=== PATIENT | female | born 1945 | race Caucasian/White ===

== ENCOUNTER 2020-04-04 09:56 | Day surgery (SDC) | payer BC, OTHER ==
[2020-03-29 11:15] VITALS: BMI 37.0
[2020-04-04] MEDS: TROPICAMIDE 1% OPHTH SOLN 15 ML BOTTLE OD SCH ×3 (10:30→10:40)
[2020-04-04] MEDS: CYCLOPENTOLATE 2% OPHTH SOLN 2 ML BOTTLE OD SCH ×3 (10:30→10:40)
[2020-04-04] MEDS: CIPROFLOXACIN 0.3% EYE DROPS 5 ML BOTTLE OD SCH ×3 (10:30→10:40)
[2020-04-04] MEDS: PHENYLEPHRINE 2.5% OPHTH SOLN 15 ML BOTTLE OD SCH ×3 (10:30→10:40)
[2020-04-04] MEDS ORDERED: MIDAZOLAM HCL 2 MG/2 ML SINGLE DOSE VIAL ONE (11:00)
[2020-04-04 11:43] VITALS: TEMP 98
[2020-04-04 12:29] VITALS: BP 128/61; PULSE 94
--- NOTE | 2020-04-05 10:10 | OP ---
DATE OF OPERATION: 04/04/2020 OPERATIVE PROCEDURE: Lens Phacoemulsification with Posterior Chamber Intraocular Lens Placement, Right Eye PREOPERATIVE DIAGNOSIS: Visually Significant Cataract of Right Eye POSTOPERATIVE DIAGNOSIS: Visually Significant Cataract of Right Eye SURGEON: Eyd Crawford M.D. ANESTHESIA: MAC PROCEDURE: The patient was brought to the operating room and placed under monitored anesthesia care by Anesthesia. A drop of Tetracaine was then placed over the right eye. The patient was then prepped and draped in the usual sterile manner. A speculum was then placed over the right eye. The eye was then well irrigated with copious amounts of BSS (balanced salt solution). The operating microscope was then moved into position. A paracentesis was performed using a 15 degree blade. At this point 0.5 mL of 1% preservative free-lidocaine was injected into the anterior chamber. Amvisc plus was then injected into the anterior chamber. A clear corneal incision was then formed using a 2.2 mm keratome. A capsulorrhexis was then performed in a continuous circular fashion beginning with a cystotome completed with an Utratas forceps. Hydrodissection was then performed using BSS on a cannula. The phaco probe was then introduced through the corneal wound and the cataract was removed using the phaco chop technique. Approximately 3 seconds of absolute phaco time was used. The remaining cortex was then removed using irrigation and aspiration with an I/A probe. The capsule was then filled with regular Amvisc and the capsule was noted to be intact. A previously selected foldable posterior chamber intraocular lens was then injected into the capsule through the corneal wound using a lens injector. It was then dialed into position using a Sinskey hook. The Amvisc was then removed using irrigation and aspiration. Miostat was then injected through the paracentesis to constrict the pupil. The paracentesis and corneal wound were then hydrated and noted to be water tight. A drop of Maxitrol was then placed over the eye. The speculum was removed and clear shield was taped over the eye. The patient tolerated the procedure well and there were no surgical complications. The patient was asked to follow up in my office the next day. EDY CRAWFORD M.D. [id number]
== END 2020-04-04 12:15 | disposition home or self-care (01) ==
LOC: FASU 09:56
PROVIDERS: ATTEND Ophthalmology
PROC: 08RJ3JZ Replacement of Right Lens with Synthetic Substitute, Percutaneous Approach (ICD-10-PCS; principal; 2020-04-04 11:05)
DX: H26.8 Other specified cataract (principal)

== ENCOUNTER 2020-11-11 02:54 | Emergency (ER) | payer BC, OTHER ==
[2020-11-11] MEDS ORDERED: ACETAMINOPHEN 500 MG TABLET (FP) PO ONE (03:30)
[2020-11-11] MEDS ORDERED: ACETAMINOPHEN 325 MG TABLET (FP) ONE (03:45)
[2020-11-11] MEDS ORDERED: SODIUM CHLORIDE 0.9% 500 ML INFUS.BAG IV ONE ×2 (03:59→05:36)
[2020-11-11 04:22] LABS: BASO % 0.1 % (0-2.0); HEMATOCRIT 36.2 % (32.4-45.2); HEMOGLOBIN 11.8 GM/dL (10.7-15.3); LYMPH % 13.1 % (8-40); MCH 32.3 pg (25.7-33.7); MCHC 32.5 g/dl (32.0-36.0); MEAN CELL VOLUME 99.3 fl (80-96); MONO % 8.6 % (3.8-10.2); NEUT % 78.2 % (42.8-82.8); PLATELET COUNT 137 K/MM3 (134-434); RBC 3.64 M/mm3 (3.60-5.2); WHITE BLOOD COUNT 5.6 K/mm3 (4.0-10.0)
[2020-11-11 04:36] VITALS: TEMP 98.2; BMI 33.0
[2020-11-11 04:40] LABS: POTASSIUM 4.3 mmol/L (3.5-5.1)
[2020-11-11 04:43] LABS: ALBUMIN 3.5 g/dl (3.4-5.0); BLOOD UREA NITROGEN 13.8 mg/dL (7-18); CALCIUM 8.4 mg/dL (8.5-10.1)
[2020-11-11 04:46] LABS: CREATININE 0.6 mg/dL (0.55-1.3)
[2020-11-11 04:48] LABS: BILIRUBIN,TOTAL 0.3 mg/dL (0.2-1); TOT PROT 6.8 g/dl (6.4-8.2)
[2020-11-11 06:17] VITALS: BP 126/75; PULSE 96
== END 2020-11-11 06:48 | disposition left against medical advice (07) ==
LOC: JER 02:54
DX: F10.10 Alcohol abuse, uncomplicated (principal)
CPT/HCPCS: 36415; 70450-TC; 70486-TC; 71045-TC-FY; 72125-TC; 73030-TC-LT-FY; 73523-TC-FY; 80053; 80307; 85025; 99285-25

== ENCOUNTER 2024-02-18 10:51 | Emergency (ER) | payer OTHER, BC ==
[2024-02-18 11:07] VITALS: RESP 18; TEMP 98.2; BMI 29.6
[2024-02-18 12:00] LABS: BASO % 0.1 % (0-2.0); HEMATOCRIT 33.2 % (32.4-45.2); HEMOGLOBIN 11.3 GM/dL (10.7-15.3); MCH 33.9 pg (25.7-33.7); MCHC 34.2 g/dl (32.0-36.0); MEAN CELL VOLUME 99.2 fl (80-96); MEAN PLT VOLUME 7.9 fl (7.5-11.1); NEUT % 84.9 % (42.8-82.8); PLATELET COUNT 210 10^3/uL (134-434); RBC 3.34 M/mm3 (3.60-5.2); RDW 14.3 % (11.6-15.6); WHITE BLOOD COUNT 7.6 K/mm3 (4.0-10.0)
[2024-02-18 12:17] LABS: INR 0.94 (0.83-1.09); PROTHROMBIN TIME (PATIENT) 10.6 SEC (9.7-13.0)
[2024-02-18 12:19] LABS: ACTIVATED PTT 27.8 SECONDS (25.2-36.5)
[2024-02-18 12:21] LABS: POTASSIUM 5.4 mmol/L (3.5-5.1)
[2024-02-18 12:23] LABS: BLOOD UREA NITROGEN 20.7 mg/dL (7-18); CALCIUM 9.1 mg/dL (8.5-10.1)
[2024-02-18 12:24] LABS: ALBUMIN 3.8 g/dl (3.4-5.0)
[2024-02-18 12:28] LABS: BILIRUBIN,TOTAL 0.6 mg/dL (0.2-1); TOT PROT 7.1 g/dl (6.4-8.2)
[2024-02-18] MEDS: SODIUM CHLORIDE 0.9% 500 ML INFUS.BAG IV ONE (13:36)
[2024-02-18] MEDS ORDERED: morphine SULFATE 4 MG/ML VIAL ONE (13:37)
[2024-02-18] MEDS: morphine CARPU-JECT 4 MG/1 ML DISP.SYRIN IVPUSH ONE (13:40)
[2024-02-18] MEDS ORDERED: PRIMIDONE 250 MG TABLET PO ONE (17:20)
[2024-02-18] MEDS: PRIMIDONE 50 MG TABLET PO ONE ×2 (17:46→18:19)
[2024-02-18 18:18] VITALS: BP 117/64; PULSE 91
== END 2024-02-18 19:20 | disposition home or self-care (01) ==
LOC: JER 10:51
PROC: 3E033NZ Introduction of Analgesics, Hypnotics, Sedatives into Peripheral Vein, Percutaneous Approach (ICD-10-PCS; principal; 2024-02-18)
DX: S42.292A Other displaced fracture of upper end of left humerus, initial encounter for closed fracture (principal); M25.512 Pain in left shoulder; W18.39XA Other fall on same level, initial encounter
CPT/HCPCS: 36415; 70450-TC; 71045-TC-FY; 72125-TC; 72170-TC-FY; 73030-TC-LT-FY; 73060-TC-LT-FY; 73070-TC-LT-FY; 73090-TC-LT-FY; 73110-TC-LT-FY; 73130-TC-LT-FY; 73200-TC-RT; 80053; 82550; 82553; 82962; 84132; 84484; 85025; 85610; 85730; 86850; 86900; 86901; 93005; 93010; 99285-25

== ENCOUNTER 2024-02-24 09:18 | Inpatient (IN) | payer OTHER, BC ==
[2024-02-24 09:40] VITALS: BMI 30.7
[2024-02-24] MEDS ORDERED: ACETAMINOPHEN INJECTION 100 ML IVPB ONE (10:01)
[2024-02-24] MEDS: SODIUM CHLORIDE 1,000 ML IV STA (10:12)
[2024-02-24] MEDS: ACETAMINOPHEN 1000 MG/100 ML BAG IVPB ONE ×2 (10:12→13:29)
[2024-02-24 10:16] LABS: BASO % 0.3 % (0-2.0); EOS % 0.4 % (0-4.5); HEMOGLOBIN 10.1 GM/dL (10.7-15.3); LYMPH % 20.9 % (8-40); MCH 33.4 pg (25.7-33.7); MCHC 32.7 g/dl (32.0-36.0); MEAN CELL VOLUME 102.3 fl (80-96); MEAN PLT VOLUME 7.3 fl (7.5-11.1); MONO % 11.9 % (3.8-10.2); NEUT % 66.5 % (42.8-82.8); PLATELET COUNT 263 10^3/uL (134-434); RBC 3.03 M/mm3 (3.60-5.2); RDW 14.7 % (11.6-15.6); WHITE BLOOD COUNT 5.4 K/mm3 (4.0-10.0)
[2024-02-24 10:41] LABS: CHLORIDE 101 mmol/L (98-107); POTASSIUM 4.6 mmol/L (3.5-5.1); SODIUM 135 mmol/L (136-145)
[2024-02-24 10:43] LABS: ANION GAP 14 mmol/L (4-13); BLOOD UREA NITROGEN 35.6 mg/dL (7-18); CALCIUM 9.2 mg/dL (8.5-10.1); CO2 20 mmol/L (21-32); GLUCOSE,RANDOM 85 mg/dL (74-106); MAGNESIUM 2.5 mg/dL (1.8-2.4)
[2024-02-24 10:44] LABS: ALBUMIN 3.3 g/dl (3.4-5.0)
[2024-02-24 10:46] LABS: SGPT/ALT 27 U/L (13-61)
[2024-02-24 10:47] LABS: CREATININE 1.5 mg/dL (0.55-1.3); SGOT/AST 35 U/L (15-37)
[2024-02-24 10:48] LABS: BILIRUBIN,TOTAL 0.6 mg/dL (0.2-1); TOT PROT 6.4 g/dl (6.4-8.2)
[2024-02-24 10:55] LABS: ALK PHOS 140 U/L (45-117)
[2024-02-24] MEDS: SODIUM CHLORIDE 500 ML IV STA (11:26)
[2024-02-24] MEDS: SODIUM CHLORIDE 1,000 ML IV SCH ×2 (13:29→14:53)
[2024-02-24] MEDS: LIDOCAINE 5% TOPICAL PATCH TP SCH (13:29)
[2024-02-24 18:06] LABS: EPI CELLS >36 /uL (0-25.1); HYALINE CASTS 3 /uL (0-3.1); PH,URINE 5.5 (5.0-8.0); URINE APPEARANCE TURBID; URINE BACTERIA >9,000 /uL (0-1359); URINE BILIRUBIN NEGATIVE (NEGATIVE); URINE COLOR YELLOW; URINE GLUCOSE (UA) NEGATIVE (NEGATIVE); URINE KETONE 2+ (NEGATIVE); URINE LEUK ESTERASE 1+ (NEGATIVE); URINE NITRITE POSITIVE (NEGATIVE); URINE PROTEIN TRACE (NEGATIVE); URINE UROBILINOGEN 0.2 mg/dL (0.2-1.0); URINE WBC 121 /uL (0-25.8)
[2024-02-24 18:07] LABS: URINE RBC 35.5 /uL (0-23.9)
[2024-02-24] MEDS: LIDOCAINE PATCH REMOVAL MC SCH (21:28)
[2024-02-24] MEDS: HEPARIN NA (PORCINE) 5,000 UNITS/ML 1ML VIAL SQ SCH (21:28)
[2024-02-24] MEDS: ACETAMINOPHEN 1000 MG/100 ML BAG IVPB PRN (21:36)
[2024-02-25 08:50] LABS: HEMATOCRIT 29.6 % (32.4-45.2); HEMOGLOBIN 9.8 GM/dL (10.7-15.3); MCH 33.6 pg (25.7-33.7); MEAN CELL VOLUME 101.6 fl (80-96); MEAN PLT VOLUME 7.1 fl (7.5-11.1); PLATELET COUNT 230 10^3/uL (134-434); RBC 2.91 M/mm3 (3.60-5.2); RDW 15.4 % (11.6-15.6); WHITE BLOOD COUNT 4.1 K/mm3 (4.0-10.0)
[2024-02-25] MEDS ORDERED: DEXTROSE 50%-WATER 25 GM/50 ML DISP.SYRIN IVPUSH ONE (09:00)
[2024-02-25 09:07] LABS: POTASSIUM 4.4 mmol/L (3.5-5.1)
[2024-02-25 09:09] LABS: CALCIUM 8.8 mg/dL (8.5-10.1)
[2024-02-25 09:10] LABS: ALBUMIN 2.9 g/dl (3.4-5.0); BLOOD UREA NITROGEN 19.5 mg/dL (7-18)
[2024-02-25 09:12] LABS: CREATININE 1.1 mg/dL (0.55-1.3)
[2024-02-25 09:13] LABS: PHOSPHOROUS 2.6 mg/dL (2.5-4.9)
[2024-02-25 09:15] LABS: BILIRUBIN,TOTAL 0.6 mg/dL (0.2-1); TOT PROT 5.9 g/dl (6.4-8.2)
[2024-02-25] MEDS: ALPRAZolam 0.25 MG TABLET PO SCH (09:15)
[2024-02-25] MEDS: PRIMIDONE 250 MG TABLET PO SCH (11:29)
[2024-02-25] MEDS: oxyCODONE HCL 5 MG TABLET PO PRN (16:00)
[2024-02-25] MEDS: FOLIC ACID 1 MG TABLET (FP) PO SCH (16:00)
[2024-02-25] MEDS: THIAMINE 100 MG TABLET PO SCH (16:00)
[2024-02-25] MEDS: ACETAMINOPHEN 325 MG TABLET (FP) PO SCH (17:43)
[2024-02-25 20:11] LABS: PROTHROMBIN TIME (PATIENT) 11.5 SEC (9.7-13.0)
[2024-02-25] MEDS: HEPARIN NA (PORCINE) 5,000 UNITS/ML 1ML VIAL SQ SCH (21:25)
[2024-02-26 08:36] LABS: BASO % 0.5 % (0-2.0); EOS % 2.2 % (0-4.5); HEMATOCRIT 29.1 % (32.4-45.2); HEMOGLOBIN 9.5 GM/dL (10.7-15.3); LYMPH % 34.1 % (8-40); MCH 33.6 pg (25.7-33.7); MCHC 32.7 g/dl (32.0-36.0); MEAN CELL VOLUME 102.9 fl (80-96); MEAN PLT VOLUME 7.5 fl (7.5-11.1); MONO % 11.8 % (3.8-10.2); NEUT % 51.4 % (42.8-82.8); PLATELET COUNT 220 10^3/uL (134-434); RBC 2.82 M/mm3 (3.60-5.2); WHITE BLOOD COUNT 2.7 K/mm3 (4.0-10.0)
[2024-02-26 08:54] LABS: POTASSIUM 3.9 mmol/L (3.5-5.1)
[2024-02-26 09:04] LABS: ALBUMIN 2.8 g/dl (3.4-5.0)
[2024-02-26 09:05] LABS: BLOOD UREA NITROGEN 10.5 mg/dL (7-18); CALCIUM 8.7 mg/dL (8.5-10.1); MAGNESIUM 1.9 mg/dL (1.8-2.4)
[2024-02-26 09:09] LABS: BILIRUBIN,TOTAL 0.6 mg/dL (0.2-1); TOT PROT 5.8 g/dl (6.4-8.2)
[2024-02-26 09:11] LABS: CHOLESTEROL 218 mg/dL (50-200)
[2024-02-26 09:12] LABS: LDL CHOLESTEROL (ONLY SJRH) 92 mg/dL (5-100)
[2024-02-26 09:15] LABS: HDL CHOLESTEROL 104 mg/dL (40-60)
[2024-02-26] MEDS: VALSARTAN 80 MG TABLET PO SCH (10:19)
[2024-02-26] MEDS: POLYETHYLENE GLYCOL (HEALTHYLAX) 3350 17 GM PACKET PO SCH (13:44)
[2024-02-26] MEDS: oxyCODONE HCL 5 MG TABLET PO ONE (13:44)
[2024-02-26] MEDS: DOCUSATE SODIUM 100 MG CAPSULE (FP) PO SCH (13:44)
[2024-02-26] MEDS: LIDOCAINE 5% TOPICAL PATCH TP ONE (13:49)
[2024-02-26] MEDS: oxyCODONE HCL 5 MG TABLET PO PRN (16:41)
[2024-02-26] MEDS: LIDOCAINE PATCH REMOVAL MC SCH (22:44)
[2024-02-27 08:44] LABS: BASO % 0.5 % (0-2.0); EOS % 2.8 % (0-4.5); HEMATOCRIT 28.8 % (32.4-45.2); HEMOGLOBIN 9.5 GM/dL (10.7-15.3); LYMPH % 38.3 % (8-40); MEAN PLT VOLUME 7.2 fl (7.5-11.1); MONO % 12.6 % (3.8-10.2); NEUT % 45.8 % (42.8-82.8); PLATELET COUNT 240 10^3/uL (134-434); RBC 2.79 M/mm3 (3.60-5.2); RDW 15.5 % (11.6-15.6); WHITE BLOOD COUNT 3.1 K/mm3 (4.0-10.0)
[2024-02-27 08:58] LABS: POTASSIUM 3.8 mmol/L (3.5-5.1)
[2024-02-27 09:02] LABS: ALBUMIN 2.6 g/dl (3.4-5.0); BLOOD UREA NITROGEN 7.3 mg/dL (7-18); CALCIUM 8.3 mg/dL (8.5-10.1); MAGNESIUM 1.6 mg/dL (1.8-2.4)
[2024-02-27 09:05] LABS: CREATININE 0.9 mg/dL (0.55-1.3)
[2024-02-27 09:07] LABS: BILIRUBIN,TOTAL 0.5 mg/dL (0.2-1); TOT PROT 5.5 g/dl (6.4-8.2)
[2024-02-27] MEDS: CEFTRIAXONE 1 GM in DEXTROSE 5%-WATER - 50 ML IVPB SCH (09:15)
[2024-02-27] MEDS: MAGNESIUM OXIDE 400 MG TABLET (FP) PO ONE (11:57)
[2024-02-27] MEDS: MAGNESIUM OXIDE 400 MG TABLET (FP) PO SCH (21:44)
[2024-02-28 08:23] LABS: POTASSIUM 3.8 mmol/L (3.5-5.1)
[2024-02-28 08:25] LABS: INR 0.95 (0.83-1.09); PROTHROMBIN TIME (PATIENT) 10.7 SEC (9.7-13.0)
[2024-02-28 08:27] LABS: CALCIUM 8.8 mg/dL (8.5-10.1)
[2024-02-28 08:28] LABS: ALBUMIN 2.7 g/dl (3.4-5.0); BLOOD UREA NITROGEN 5.1 mg/dL (7-18); MAGNESIUM 1.8 mg/dL (1.8-2.4)
[2024-02-28 08:30] LABS: CREATININE 0.8 mg/dL (0.55-1.3)
[2024-02-28 08:32] LABS: BILIRUBIN,TOTAL 0.5 mg/dL (0.2-1); TOT PROT 5.5 g/dl (6.4-8.2)
[2024-02-28 08:46] LABS: BASO % 0.8 % (0-2.0); EOS % 2.7 % (0-4.5); HEMATOCRIT 30.2 % (32.4-45.2); LYMPH % 30.8 % (8-40); MCH 33.6 pg (25.7-33.7); MCHC 33.2 g/dl (32.0-36.0); MEAN CELL VOLUME 101.4 fl (80-96); MEAN PLT VOLUME 7.5 fl (7.5-11.1); MONO % 12.1 % (3.8-10.2); NEUT % 53.6 % (42.8-82.8); PLATELET COUNT 261 10^3/uL (134-434); RBC 2.98 M/mm3 (3.60-5.2); RDW 15.4 % (11.6-15.6); WHITE BLOOD COUNT 3.5 K/mm3 (4.0-10.0)
[2024-02-29 09:09] LABS: BASO % 0.5 % (0-2.0); EOS % 2.5 % (0-4.5); HEMATOCRIT 28.9 % (32.4-45.2); HEMOGLOBIN 9.5 GM/dL (10.7-15.3); LYMPH % 25.1 % (8-40); MCH 33.6 pg (25.7-33.7); MCHC 32.9 g/dl (32.0-36.0); MEAN CELL VOLUME 101.9 fl (80-96); MEAN PLT VOLUME 7.3 fl (7.5-11.1); MONO % 10.3 % (3.8-10.2); NEUT % 61.6 % (42.8-82.8); PLATELET COUNT 260 10^3/uL (134-434); RBC 2.84 M/mm3 (3.60-5.2); RDW 16.2 % (11.6-15.6); WHITE BLOOD COUNT 3.4 K/mm3 (4.0-10.0)
[2024-02-29 09:12] LABS: INR 0.98 (0.83-1.09); PROTHROMBIN TIME (PATIENT) 11.3 SEC (9.7-13.0)
[2024-02-29 09:33] LABS: POTASSIUM 3.9 mmol/L (3.5-5.1)
[2024-02-29 09:37] LABS: CALCIUM 8.6 mg/dL (8.5-10.1)
[2024-02-29 09:38] LABS: ALBUMIN 2.5 g/dl (3.4-5.0); BLOOD UREA NITROGEN 6.5 mg/dL (7-18); MAGNESIUM 2.3 mg/dL (1.8-2.4)
[2024-02-29 09:40] LABS: CREATININE 0.7 mg/dL (0.55-1.3)
[2024-02-29 09:42] LABS: TOT PROT 5.2 g/dl (6.4-8.2)
[2024-02-29 09:58] LABS: BILIRUBIN,TOTAL 0.5 mg/dL (0.2-1)
[2024-02-29] MEDS: oxyCODONE HCL 5 MG TABLET PO PRN (20:00)
[2024-03-01] MEDS ORDERED: MIDAZOLAM HCL 2 MG/2 ML SINGLE DOSE VIAL ONE (07:01)
[2024-03-01] MEDS ORDERED: PROPOFOL 20 ML ONE ×3 (07:02→11:37)
[2024-03-01] MEDS ORDERED: SUCCINYLCHOLINE CHLORIDE 200 MG/10 ML SYRINGE ONE (07:03)
[2024-03-01] MEDS ORDERED: ROCURONIUM BROMIDE 50 MG/5 ML SYRINGE ONE ×2 (07:03→08:22)
[2024-03-01] MEDS ORDERED: BUPIVACAINE HCL/PF 0.5% (5 MG/ML) 30 ML VIAL IJ ONE (07:17)
[2024-03-01] MEDS ORDERED: BUPIVACAINE LIPOSOME/PF (EXPAREL) 266 MG/20 ML VIAL ONE (07:17)
[2024-03-01] MEDS ORDERED: TRANEXAMIC ACID 1000 MG/10 ML VIAL ONE ×3 (07:20→10:54)
[2024-03-01] MEDS ORDERED: VANCOMYCIN 1,000 MG VIAL (RESTRICTED TO ID ONLY) ONE ×2 (07:20→07:43)
[2024-03-01] MEDS ORDERED: PHENYLEPHRINE HCL 10 MG/1 ML SINGLE DOSE VIAL ONE (08:33)
[2024-03-01] MEDS ORDERED: HYDROmorphone HCL/PF 1 MG/ML VIAL ONE (08:50)
[2024-03-01] MEDS ORDERED: ONDANSETRON 4 MG/2 ML VIAL IVPUSH PRN (09:03)
[2024-03-01] MEDS ORDERED: SODIUM CHLORIDE 0.9% P/F 10 ML VIAL IJ ONE (09:29)
[2024-03-01] MEDS ORDERED: ONDANSETRON 4 MG/2 ML VIAL ONE (09:29)
[2024-03-01] MEDS ORDERED: METOCLOPRAMIDE HCL INJECTION 10 MG/2 ML VIAL ONE (09:29)
[2024-03-01] MEDS ORDERED: ceFAZolin SODIUM 1 GM VIAL ONE (09:29)
[2024-03-01] MEDS ORDERED: DEXAMETHASONE SOD PHOSPHATE 4 MG/1 ML VIAL ONE (09:29)
[2024-03-01] MEDS ORDERED: ACETAMINOPHEN INJECTION 100 ML IVPB ONE (09:45)
[2024-03-01] MEDS ORDERED: SUGAMMADEX SODIUM 200 MG/2 ML VIAL ONE (09:54)
[2024-03-01 12:47] LABS: HEMATOCRIT 30.5 % (32.4-45.2); HEMOGLOBIN 9.6 G/dL (10.7-15.3); MCHC 31.5 g/dl (32.0-36.0); MEAN CELL VOLUME 104.8 fl (80-96); MEAN PLT VOLUME 7.6 fl (7.5-11.1); PLATELET COUNT 307.5 10^3/uL (134-434); RBC 2.91 10^6/uL (3.60-5.2); RDW 15.3 % (11.6-15.6); WHITE BLOOD COUNT 7.4 10^3/uL (4.0-10.8)
[2024-03-01 12:48] LABS: ADD RBC MORPHOLOGY YES
[2024-03-01 13:32] LABS: ANISOCYTOSIS FEW; MACROCYTOSIS FEW; PLATELET ESTIMATE ADEQUATE
[2024-03-01] MEDS ORDERED: MAG HYDROX/AL HYDROX/SIMETH 30 ML UNIT-DOSE CUP PO PRN (15:49)
[2024-03-01] MEDS: LACTATED RINGERS SOLUTION 1,000 ML IV SCH ×2 (16:20→16:44)
[2024-03-01] MEDS: SODIUM CHLORIDE 1,000 ML IV SCH (16:35)
[2024-03-01] MEDS: CEFAZOLIN SODIUM 2 GM in DEXTROSE 5%-WATER 100 ML IVPB SCH ×3 (16:45→16:52)
[2024-03-01] MEDS: ACETAMINOPHEN 325 MG TABLET (FP) PO SCH (18:25)
[2024-03-01 20:48] LABS: HEMATOCRIT 32.1 % (32.4-45.2); HEMOGLOBIN 10.2 G/dL (10.7-15.3); MCH 31.9 pg (25.7-33.7); MCHC 31.7 g/dl (32.0-36.0); MEAN CELL VOLUME 100.6 fl (80-96); MEAN PLT VOLUME 7.5 fl (7.5-11.1); PLATELET COUNT 297.6 10^3/uL (134-434); RBC 3.19 10^6/uL (3.60-5.2); RDW 17.5 % (11.6-15.6)
[2024-03-01] MEDS: VANCOMYCIN/WATER FOR INJ (PEG) 1,000 MG/200 ML BAG IVPB ONE (20:56)
[2024-03-01] MEDS: GABAPENTIN 300 MG CAPSULE PO SCH (21:00)
[2024-03-01] MEDS: SENNOSIDES/DOCUSATE COMBO (SENNA PLUS) TABLET (UD) PO SCH (21:00)
[2024-03-01] MEDS: MAGNESIUM OXIDE 400 MG TABLET (FP) PO SCH (21:00)
[2024-03-01] MEDS: POLYETHYLENE GLYCOL (HEALTHYLAX) 3350 17 GM PACKET PO SCH (21:00)
[2024-03-01] MEDS: DOCUSATE SODIUM 100 MG CAPSULE (FP) PO SCH (21:00)
[2024-03-01] MEDS ORDERED: HEPARIN NA (PORCINE) 5,000 UNITS/ML 1ML VIAL SQ SCH (22:00)
[2024-03-01] MEDS: SODIUM CHLORIDE 500 ML IV ONE (22:42)
[2024-03-01] MEDS: oxyCODONE HCL 5 MG TABLET PO PRN (23:51)
[2024-03-02] MEDS ORDERED: CEFAZOLIN SODIUM 2 GM in DEXTROSE 5%-WATER 100 ML IVPB SCH
[2024-03-02] MEDS: KETOROLAC TROMETHAMINE 15 MG/ML VIAL IVPUSH ONE (01:30)
[2024-03-02 03:54] VITALS: RESP 18
[2024-03-02] MEDS: LIDOCAINE PATCH REMOVAL MC SCH (04:16)
[2024-03-02 08:13] LABS: INR 0.95 (0.83-1.09); PROTHROMBIN TIME (PATIENT) 10.9 SEC (9.7-13.0)
[2024-03-02 08:21] LABS: HEMOGLOBIN 9.4 G/dL (10.7-15.3); MCH 31.6 pg (25.7-33.7); MCHC 31.2 g/dl (32.0-36.0); MEAN CELL VOLUME 101.3 fl (80-96); MEAN PLT VOLUME 8.1 fl (7.5-11.1); PLATELET COUNT 278.1 10^3/uL (134-434); RBC 2.96 10^6/uL (3.60-5.2); RDW 18.3 % (11.6-15.6); WHITE BLOOD COUNT 5.5 10^3/uL (4.0-10.8)
[2024-03-02 08:33] LABS: ALBUMIN 2.8 g/dl (3.4-5.0); ALK PHOS 114 U/L (45-117); ANION GAP 7 mmol/L (4-13); BILIRUBIN,TOTAL 0.4 mg/dl (0.2-1); CALCIUM 8.2 mg/dl (8.5-10.1); CHLORIDE 104 mmol/L (98-107); CO2 29 mmol/L (21-32); CREATININE 0.6 mg/dl (0.6-1.3); GLUCOSE,RANDOM 122 mg/dl (74-106); SGOT/AST 28 U/L (15-37); SGPT/ALT 10 U/L (7-52); SODIUM 140 mmol/L (136-145); TOT PROT 4.7 g/dl (6.4-8.2)
[2024-03-02] MEDS: ASPIRIN 81 MG CHEWABLE TABLETS PO SCH (09:11)
[2024-03-02] MEDS: THIAMINE 100 MG TABLET PO SCH (09:12)
[2024-03-02] MEDS: FOLIC ACID 1 MG TABLET (FP) PO SCH (09:12)
[2024-03-02] MEDS: PANTOPRAZOLE 40 MG TABLET PO SCH (09:13)
[2024-03-02] MEDS: ALPRAZolam 0.25 MG TABLET PO SCH (09:13)
[2024-03-02] MEDS: MULTIVITAMINS (DAILY MVI) TABLET (FP) PO SCH (09:13)
[2024-03-02] MEDS: PRIMIDONE 250 MG TABLET PO SCH (09:19)
[2024-03-02] MEDS: LIDOCAINE 5% TOPICAL PATCH TP SCH (09:21)
[2024-03-02] MEDS: CEFTRIAXONE 1 GM in DEXTROSE 5%-WATER - 50 ML IVPB SCH (09:23)
[2024-03-02 10:02] VITALS: TEMP 98.3
[2024-03-02 14:31] VITALS: BP 98/55; PULSE 88
== END 2024-03-02 17:05 | DRG 483 ==
LOC: JER 09:18 → JERBED 12:36 → J8W 14:13 → OBSVTOIN 02-25 13:45 → FM/S 02-29 13:11
PROVIDERS: ADMIT Internal Medicine; ATTEND Internal Medicine
PROC: 0RRK0JZ Replacement of Left Shoulder Joint with Synthetic Substitute, Open Approach (ICD-10-PCS; 2024-03-01)
PROC: 30233N1 Transfusion of Nonautologous Red Blood Cells into Peripheral Vein, Percutaneous Approach (ICD-10-PCS; 2024-03-01)
PROC: 0RPK0JZ Removal of Synthetic Substitute from Left Shoulder Joint, Open Approach (ICD-10-PCS; principal; 2024-03-01 08:41)
DX: S42.292A Other displaced fracture of upper end of left humerus, initial encounter for closed fracture (principal); N39.0 Urinary tract infection, site not specified; N17.9 Acute kidney failure, unspecified; I10 Essential (primary) hypertension; D64.9 Anemia, unspecified; M75.22 Bicipital tendinitis, left shoulder; M19.012 Primary osteoarthritis, left shoulder; F10.10 Alcohol abuse, uncomplicated; E78.5 Hyperlipidemia, unspecified; M25.551 Pain in right hip; I95.81 Postprocedural hypotension; J45.909 Unspecified asthma, uncomplicated; E86.0 Dehydration; B96.20 Unspecified Escherichia coli [E. coli] as the cause of diseases classified elsewhere; N28.1 Cyst of kidney, acquired; S70.01XA Contusion of right hip, initial encounter; W18.30XA Fall on same level, unspecified, initial encounter; Y93.9 Activity, unspecified; Y92.098 Other place in other non-institutional residence as the place of occurrence of the external cause; Y99.9 Unspecified external cause status; Z98.84 Bariatric surgery status; Z96.643 Presence of artificial hip joint, bilateral; Z96.612 Presence of left artificial shoulder joint
CPT/HCPCS: 36415; 36430; 71045-TC-FY; 72170-TC-FY; 72192-TC; 73030-TC-LT-FY; 73502-TC-RT-FY; 76775-TC; 80053; 80061; 80307; 81003; 83036; 83540; 83550; 83735; 84100; 85025; 85027; 85610; 86850; 86900; 86901; 86922; 87086; 87186; 87635; 88304-TC; 88305-TC; 88311-TC; 93005; 93010; 93306-TC; 94760; 97116-GP; 97161-GP; 99285-25; C1713; C1776; G0378; J0131; J1644; P9058